=== PATIENT | male | born 1980 | race Caucasian/White ===

== ENCOUNTER → 2017-05-15 | Outpatient (CLI) | payer OTHER ==
--- NOTE | 2017-05-15 14:59 | MR ---
EXAMINATION TYPE: MR cspine/felipapine wo con DATE OF EXAM: 05/15/2017 COMPARISON: NONE HISTORY: LBP, Cervicalgia CONTRAST: Performed utilizing 0 mL intravenous Gadavist gadolinium contrast. TECHNIQUE: Multiplanar multiecho imaging on a 3.0 Melissa magnet is performed through the cervical spin e. FINDINGS: The craniovertebral junction is normal. Vertebral body alignment is normal. C7-T1: No focal disc herniation or significant disc bulge is evident. No spinal canal stenosis or n eural foraminal stenosis is present. C6-7: There is right paracentral broad-based mild disc bulge with mild anterior thecal sac compressio n. Cord deformity is evident although no definite cord contact is identified at this time. Signal wi thin the spinal cord appears normal.. C5-6: There is a right paracentral large disc herniation with moderate anterior thecal sac compressio n. Cord deformity is evident. Signal within the cord appears normal. Some right foraminal narrowing i s present.. C4-5: There is a central protrusion with mild anterior thecal sac compression. This close approximati on with spinal cord. No AP spinal canal stenosis is present. The right foramen is mildly narrowed.. C3-4: There is central broad subligamentous disc herniation with mild anterior thecal sac compression . No cord contact or cord deformity is evident. No spinal canal stenosis present. Neural foramen are patent.. C2-3: No focal disc herniation or significant disc bulge is evident. No spinal canal stenosis or ciara ral foraminal stenosis is present. IMPRESSIONS: 1. Large right paracentral disc herniation C5-C6 with cord deformity. 2. Small to moderate right paracentral disc herniation C6-7 with cord deformity. 3. No spinal canal stenosis present. 4. Central protrusion C4-5 with mild anterior thecal sac compression. 5. Subligamentous disc herniation with mild anterior thecal sac impression and C3-C4. EXAMINATION TYPE: MR evertine/susy wo con DATE OF EXAM: 05/15/2017 COMPARISON: 08/22/2015 [facility] HISTORY: LBP, Cervicalgia CONTRAST: 0 mL intravenous Gadavist. TECHNIQUE: Multiplanar, multisequence images of the lumbar spine were acquired. FINDINGS: L5-S1: There is broad-based central and left paracentral disc bulge. This appears slightly greater th an on the comparison study No spinal canal stenosis. No foraminal stenosis. This may have contact with the exiting nerve roots. Displacement or compression however is not identified. Disc desiccatio n is present. L4-L5: Broad-based disc herniation is present with extension beyond the L4 and L5 endplates. This has moderate anterior thecal sac flattening. No AP spinal canal stenosis is present. Findings appear sta ble from comparison. Facet hypertrophy is present. Disc desiccation is present. This appears similar to previous exam. L3-L4: No significant disc bulge or disc herniation. No spinal canal stenosis. No foraminal stenosi s. Disc hydration is preserved. L2-L3: Interval subligamentous disc herniation is present best visualized in the sagittal plane. Sign ificant anterior thecal sac compression is not evident. No spinal canal stenosis is present. Neural f oramen are patent. No spinal canal stenosis. No foraminal stenosis. Disc desiccation is present. L1-L2: No significant disc bulge or disc herniation. No spinal canal stenosis. No foraminal stenosi s. Neural foramen are patent.. T12-L1: No significant disc bulge or disc herniation. No spinal canal stenosis. No foraminal stenos is. Neural foramen are patent.. Cord terminates at the L1 level. IMPRESSION: 1. Slight increase paracentral broad-based disc herniation at L5-S1 with exiting nerve root contact w ithin the spinal canal. Displacement or compression is not identified. Correlate for radicular sympto ms. 2. Broad-based disc herniation L4-5 appears similar to prior study. This has moderate anterior thecal sac compression. 3. Tiny subligamentous disc herniation L2-3 questionable clinical significance.
== END | disposition home or self-care (01) ==
LOC: RADMRIMAIN 06:10
PROVIDERS: ATTEND Psychiatry & Neurology Neurology
DX: M50.21 Other cervical disc displacement, high cervical region (principal); M51.27 Other intervertebral disc displacement, lumbosacral region; Z88.1 Allergy status to other antibiotic agents
CPT/HCPCS: 72141; 72148

== ENCOUNTER → 2017-11-30 | Outpatient (CLI) | payer OTHER ==
--- NOTE | 2017-11-30 20:27 | ECHOS ---
STRESS ECHOCARDIOGRAM INDICATIONS: Chest pain. MEDICATIONS: [place], Motrin, Topamax. BASELINE HEART RATE: 72 BASELINE BLOOD PRESSURE: 110/55 MAXIMUM HEART RATE: 165 MAXIMUM BLOOD PRESSURE: 215/64 85% MPHR: 155 100% MPHR: 182 METS: 9.7 MAXIMUM STAGE REACHED: II TOTAL EXERCISE TIME: 8:16 CLINICAL INFORMATION: Baseline heart rate 72 beats per minute. Baseline blood pressure 110/55 mmHg. Baseline 12-lead ECG shows sinus rhythm with normal SD interval and incomplete right bundle branch block pattern. The patient exercised on [place] protocol for 8 minutes 16 seconds. He experienced chest discomfort during the test. Peak heart rate was 165 beats per minute. Normal blood pressure response to exercise. There was no ECG evidence for ischemia. No arrhythmias were noted. Baseline 2D echo images showed normal LV size and systolic function without segmental wall motion abnormalities. At peak exercise, there was excellent augmentation of overall LV contractility without development of any wall motion abnormalities. At recovery, regional and global LV systolic function remained normal. IMPRESSION: No ECG or echocardiographic evidence for ischemia. MMODL / IJN: [id number] /
== END | disposition home or self-care (01) ==
LOC: RADNMMAIN 09:11
PROVIDERS: ATTEND Family Medicine
DX: R06.02 Shortness of breath (principal); R07.9 Chest pain, unspecified; Z88.1 Allergy status to other antibiotic agents
CPT/HCPCS: C8930; Q9950; 93351

== ENCOUNTER → 2017-12-05 | Outpatient (CLI) | payer OTHER ==
--- NOTE | 2017-12-21 13:00 | HM ---
HOLTER MONITOR REPORT DCG: INDICATION: Palpitation. The patient was monitored for 24 hours. The baseline rhythm appeared to be sinus mechanism with a minimum heart rate of 53 beats per minute, max heart rate 129 beats per minute per minute, average heart rate of 86 beats per minute. Ventricular ectopic events were presented in less than 1% of the total pace count and presented only as isolated PVC. Supraventricular ectopy events were rare. No evidence of sinus pause or sinus arrest. The patient reported symptoms of chest pain and headache and nausea and the symptoms were associated with normal sinus mechanism. CONCLUSION: 1. Sinus rhythm as a baseline mechanism. 2. Rare ventricular ectopic event. 3. Rare supraventricular ectopic event. 4. No evidence of sinus pause or sinus arrest. 5. Patient reported symptoms of chest pain and headache and nausea and the symptoms were consistent with sinus tachycardia. MMODL / IJN: [id number] /
== END | disposition home or self-care (01) ==
LOC: RADECHMAIN 12:10
PROVIDERS: ATTEND Family Medicine
DX: I49.3 Ventricular premature depolarization (principal); R00.0 Tachycardia, unspecified; Z88.1 Allergy status to other antibiotic agents
CPT/HCPCS: 93225; 93226

== ENCOUNTER → 2017-12-11 | Outpatient (CLI) | payer OTHER ==
--- NOTE | 2017-12-11 17:45 | CT ---
EXAMINATION TYPE: CT angio chest DATE OF EXAM: 12/11/2017 5:21 PM COMPARISON: None HISTORY: Elevated d-dimer, SOB and chest pain x2 months CT DLP: 657 mGycm Automated exposure control for dose reduction was used. CONTRAST: CTA scan of the thorax is performed with IV Contrast, patient injected with 100 mL of Isovue 370, pul monary embolism protocol. Our 3-D post processed images.. FINDINGS: The lungs are clear of infiltrate. There is no evidence of a pulmonary mass. There is mild linear den sity in the lingula left upper lobe consistent with scarring or atelectasis. There is no pleural effu ana. Heart size is normal. There is no pericardial effusion. There is normal contrast opacification of the pulmonary arteries. I see no filling defect. There is no mediastinal adenopathy. There is tiny air bubble behind the leaflet of the pulmonary valve that could be from inadvertent air injection. T here is no mediastinal adenopathy. Thoracic aorta shows no aneurysm or dissection. There are no hilar masses. The bony thorax appears intact. IMPRESSION: NO EVIDENCE OF PULMONARY EMBOLISM. MINIMAL SCARRING OR SUBSEGMENTAL ATELECTASIS IN THE [place]A.
== END | disposition home or self-care (01) ==
LOC: RADCTMAIN 16:38
PROVIDERS: ATTEND Family Medicine
DX: R07.9 Chest pain, unspecified (principal); R79.89 Other specified abnormal findings of blood chemistry; Z88.1 Allergy status to other antibiotic agents
CPT/HCPCS: 71275; Q9967

== ENCOUNTER 2018-01-16 16:23 | Observation (INO) | payer OTHER ==
[2018-01-16] MEDS ORDERED: SODIUM CHLORIDE 0.9% 1,000 ML IV STA (16:53)
--- NOTE | 2018-01-16 17:09 | ED ---
Chest Pain HPI - General Chief Complaint: Chest Pain Stated Complaint: JAW NUMBNESS + MULTIPLE SYMPTOMS Time Seen by Provider: 01/16/18 16:34 Source: patient, RN notes reviewed, old records reviewed Mode of arrival: ambulatory Limitations: no limitations - History of Present Illness Initial Comments: This is a 29-year-old male to the ER for evaluation of multiple complaints, patient has issues with chronic pain chronic back pain chronic neck pain, chest pain which is chronic as well as shortness of breath on exertion, patient is a smoker x-ray states it patient's breathing is improved when he smokes. Patient recently is going through outpatient testing to find out causes of shortness of breath etc. Patient today began with jaw pain left-sided jaw numbness and tingling. Denies any other complaints. No fevers no cough or congestion. MD Complaint: chest pain, other ((Pain) -: days(s) Onset: during rest Pain Location: other (No doctor lunch () Pain Radiation: none Severity: mild Severity scale (1-10): 3 Quality: tightness Consistency: constant Improves With: other (Smoking) Worsens With: exertion Context: new medications Anginal Symptoms: dyspnea Other Symptoms: palpitations Treatments Prior to Arrival: none - Related Data Home Medications Medication Instructions Recorded Confirmed Gabapentin 800 mg PO TID 01/16/18 01/16/18 HYDROcodone/APAP 10-325MG [[place] 1 tab PO TID PRN 01/16/18 01/16/18 10-325] Ibuprofen [Motrin] 800 mg PO TID PRN 01/16/18 01/16/18 SUMAtriptan SUCCINATE [Imitrex] 100 mg PO DAILY PRN 01/16/18 01/16/18 Topiramate [Topamax] 50 mg PO BID 01/16/18 01/16/18 Allergies Allergy/AdvReac Type Severity Reaction Status Date / Time fenofibrate Allergy Unknown Verified 01/16/18 16:59 cephalexin [From Keflex] AdvReac Nausea & Verified 01/16/18 16:59 Vomiting Review of Systems ROS Statement: Those systems with pertinent positive or pertinent negative responses have been documented in the HPI. ROS Other: All systems not noted in ROS Statement are negative. EKG Findings - EKG Comments: EKG Findings:: EKG shows sinus tach ratre 108, LA 142, QRS 96, QTc 446 Past Medical History Additional Past Medical History / Comment(s): migraines,. light sensitivity. implants in neck. herniated discs History of Any Multi-Drug Resistant Organisms: None Reported Past Surgical History: No Surgical Hx Reported Past Psychological History: No Psychological Hx Reported Smoking Status: Never smoker Past Alcohol Use History: None Reported Past Drug Use History: None Reported General Exam Limitations: no limitations General appearance: alert, in no apparent distress, anxious Head exam: Present: atraumatic, normocephalic, normal inspection Eye exam: Present: normal appearance, PERRL, EOMI. Absent: scleral icterus, conjunctival injection, periorbital swelling ENT exam: Present: normal exam, mucous membranes moist Neck exam: Present: normal inspection. Absent: tenderness, meningismus, lymphadenopathy Respiratory exam: Present: normal lung sounds bilaterally. Absent: respiratory distress, wheezes, rales, rhonchi, stridor Cardiovascular Exam: Present: normal rhythm, tachycardia, normal heart sounds. Absent: systolic murmur, diastolic murmur, rubs, gallop, clicks GI/Abdominal exam: Present: soft, normal bowel sounds. Absent: distended, tenderness, guarding, rebound, rigid Extremities exam: Present: normal inspection, full ROM, normal capillary refill. Absent: tenderness, pedal edema, joint swelling, calf tenderness Back exam: Present: normal inspection Neurological exam: Present: alert, oriented X3, CN II-XII intact Psychiatric exam: Present: normal affect, normal mood Skin exam: Present: warm, dry, intact, normal color. Absent: rash Course Vital Signs 01/16/18 01/16/18 01/16/18 16:28 17:30 18:30 Temperature 98.1 F Pulse Rate 110 H 93 78 Respiratory 16 20 16 Rate Blood Pressure 123/81 126/90 124/84 O2 Sat by Pulse 100 96 97 Oximetry 01/16/18 19:00 Temperature Pulse Rate 75 Respiratory 17 Rate Blood Pressure 116/71 O2 Sat by Pulse 99 Oximetry - Reevaluation(s) Reevaluation #1: 01/16/18 18:35 Medical records including prior CAT scans stress test echo and Holter monitor reviewed Reevaluation #2: 01/16/18 18:35 Patient still remains a chest pain shortness of breath, jaw numbness Chest Pain MDM - MDM 37 male the ER with persistent chest pain shortness of breath exertional dyspnea. Patient be admitted for cardiology evaluation Disposition Clinical Impression: Chest pain Disposition: ADMITTED IP TO THIS HOSP Condition: Fair Instructions: Chest Pain (ED) Is patient prescribed a controlled substance at d/c from ED?: No Referrals: Fili Lee MD [Primary Care Provider] - 1-2 days
[2018-01-16 17:28] LABS: Basophils % (A) 0 %; Eosinophils # (A) 0.2 k/uL (0-0.7); Eosinophils % (A) 2 %; HCT 44.5 % (39.0-53.0); HGB 15.3 gm/dL (13.0-17.5); Lymphocytes # (A) 2.8 k/uL (1.0-4.8); Lymphocytes % (A) 33 %; MCH 30.5 pg (25.0-35.0); MCHC 34.5 g/dL (31.0-37.0); MCV 88.6 fL (80.0-100.0); Mean Platelet Volume 7.9; Monocytes # (A) 0.5 k/uL (0-1.0); Monocytes % (A) 6 %; Neutrophils # (A) 4.8 k/uL (1.3-7.7); Neutrophils % (A) 57 %; Platelet Count 164 k/uL (150-450); RBC 5.02 m/uL (4.30-5.90); RDW 13.2 % (11.5-15.5); WBC 8.4 k/uL (3.8-10.6)
[2018-01-16 17:41] LABS: ALT 64 U/L (21-72); AST 32 U/L (17-59); Albumin 4.4 g/dL (3.5-5.0); Alkaline Phosphatase 56 U/L (38-126); Anion Gap 9 mmol/L; Blood Urea Nitrogen 17 mg/dL (9-20); Calcium 9.4 mg/dL (8.4-10.2); Carbon Dioxide 19 mmol/L (22-30); Chloride 115 mmol/L (98-107); Glucose 114 mg/dL (74-99); Lipase 58 U/L (23-300); Potassium 3.8 mmol/L (3.5-5.1); Sodium 143 mmol/L (137-145); Total Bilirubin 0.4 mg/dL (0.2-1.3); Total Protein 6.7 g/dL (6.3-8.2)
[2018-01-16 17:58] LABS: Creatine Kinase 121 U/L (55-170)
[2018-01-16 18:11] LABS: Creatine Kinase MB 0.3 ng/mL (0.0-2.4); Troponin I <0.012 ng/mL (0.000-0.034)
--- NOTE | 2018-01-16 18:44 | CT ---
EXAMINATION TYPE: CT angio chest with contrast and with 3-D reconstruction renderings. DATE OF EXAM: 01/16/2018 6:16 PM COMPARISON: 12/11/2017 HISTORY: Chest pain and SOB x2 months CT DLP: 596.7 mGycm Automated exposure control for dose reduction was used. CONTRAST: CTA scan of the thorax is performed with IV Contrast, patient injected with 100 mL of Isovu e 370, pulmonary embolism protocol. 3-D reconstructions. FINDINGS: AIRWAYS AND LUNGS: The airways have normal appearance. The lungs are grossly clear, there is no matt rning parenchymal mass or nodule identified. However, there are a few subpleural bilateral tiny pulm onary opacities noted, which are not calcified. These are nonspecific but can be further characterize d with 12 month follow-up CT, unless indicated sooner on a clinical basis. PLEURAL SPACES: There is no pleural effusion or pneumothorax seen. MEDIASTINUM: There is satisfactory enhancement of the pulmonary artery and its branches, there is no CT evidence for pulmonary embolism. Aorta is unremarkable. There are no greater than 1 cm hilar or m ediastinal lymph nodes. No megaly. No Pericardial effusion. OTHER: No additional significant abnormality is seen. IMPRESSION: 1. NO ACUTE PROCESS. 2. INCIDENTAL: A FEW TINY MULTIFOCAL SUBPLEURAL PULMONARY OPACITIES.
[2018-01-16 19:03] LABS: D-Dimer 0.4 mg/L FEU (<0.60); INR 0.9 (<1.2); Prothrombin Time 9.7 sec (9.0-12.0)
[2018-01-16] MEDS ORDERED: NITROGLYCERIN SL TABS 0.4 MG TAB SUBLINGUAL PRN (19:36)
[2018-01-16] MEDS ORDERED: ASPIRIN 81 MG PO STA (19:36)
[2018-01-16] MEDS ORDERED: MORPHINE SULFATE 4 MG/ML SYRINGE IV PRN (19:36)
--- NOTE | 2018-01-16 19:38 | XR ---
EXAMINATION: XR chest 2V DATE AND TIME: 01/16/2018 7:08 PM CLINICAL INDICATION: PHH; Chest Pain TECHNIQUE: Departmental protocol COMPARISON: None FINDINGS: The lungs are clear. The pleural spaces are negative. The cardiac silhouette is not enlarged. The remainder of the mediastinal silhouette is unremarkable. The skeletal structures and soft tissues are negative for acute findings. IMPRESSION: NO ACUTE PROCESS.
[2018-01-16] MEDS: SODIUM CHLORIDE 0.9% 1,000 ML IV SCH ×2 (20:25→23:37)
[2018-01-17 00:17] LABS: Creatine Kinase 120 U/L (55-170)
[2018-01-17 00:23] LABS: Creatine Kinase MB 0.3 ng/mL (0.0-2.4); Troponin I <0.012 ng/mL (0.000-0.034)
[2018-01-17 02:27] VITALS: RESP 18
[2018-01-17 03:56] VITALS: BP 138/99; PULSE 76; TEMP 97.6
[2018-01-17] MEDS ORDERED: ASPIRIN 325 MG TAB PO SCH (09:00)
== END 2018-01-17 03:56 | disposition left against medical advice (07) ==
LOC: EC 16:23 → 1SOBS 19:36
PROVIDERS: ADMIT Family Medicine; ATTEND Family Medicine
DX: R07.89 Other chest pain (principal); R06.02 Shortness of breath; R20.0 Anesthesia of skin; R68.84 Jaw pain; R06.09 Other forms of dyspnea; R00.2 Palpitations; G43.909 Migraine, unspecified, not intractable, without status migrainosus; G89.29 Other chronic pain; M54.2 Cervicalgia; M54.9 Dorsalgia, unspecified; Z79.899 Other long term (current) drug therapy; Z88.1 Allergy status to other antibiotic agents; Z88.8 Allergy status to other drugs, medicaments and biological substances; Z53.21 Procedure and treatment not carried out due to patient leaving prior to being seen by health care provider
CPT/HCPCS: 96361 ×2; 96374; 99285; 36415; 93005; 85379; 83880; 80053; 82550; 82553; 83690; 83735; 84484; 85025; 85610; 85730; 71046; 71275; G0378 ×2; J2270; Q9967